=== PATIENT | female | born 1945 | race Caucasian/White ===

== ENCOUNTER 2018-05-24 09:15 | Emergency (ER) | payer MEDICARE, BC ==
[2018-05-24] MEDS ORDERED: Ibuprofen 800 MG Tab PO ONE (10:10)
--- NOTE | 2018-05-24 10:27 | EDM.PDOC ---
<Mireya Dhaliwal M - Last Filed: 05/24/18 10:16> ED HPI GENERAL MEDICAL PROBLEM - General Chief Complaint: Upper Extremity Injury/Pain Stated Complaint: R ARM INJURY Time Seen by Provider: 05/24/18 09:26 Source of Information: Reports: Patient History Limitations: Reports: No Limitations - History of Present Illness INITIAL COMMENTS - FREE TEXT/NARRATIVE: Patient comes in for complaint of right arm pain. She tripped and fell on the pavement on her right side 30 minutes prior to arrival. Most of her pain is over her right elbow, her arm was not outstretched when she fell. Associated symptoms include bruising over her olecranon, swelling, pain, reduced ROM. Skin is intact over the elbow. Patient denies head trauma or LOC. Onset: Today Onset Date: 05/24/18 Onset Time: 08:30 Duration: Constant Location: Reports: Upper Extremity, Right Quality: Reports: Ache Severity: Moderate (7/10) Worsens with: Reports: Movement Context: Reports: Trauma (tripped and fell on pavement) Associated Symptoms: Reports: No Other Symptoms Treatments INTERIOR DESIGN COORDINATOR: Reports: Splint(s) (right forearm splint) Right Arm Pain Score (Numeric/FACES): 7 - Related Data Allergies Allergy/AdvReac Type Severity Reaction Status Date / Time folic acid Allergy Diaphoresis Verified 05/24/18 09:26 Home Meds: Home Meds Aspirin [Halfprin] 81 mg PO DAILY 05/24/18 [History] Citalopram Hydrobromide [Celexa] 1 tab PO DAILY 05/24/18 [History] Furosemide [Lasix] 20 mg PO DAILY 05/24/18 [History] Hydrocodone/Acetaminophen [Hydrocodon-Acetaminophen 5-325] 1 - 2 each PO Q6HR PRN #20 tablet 05/24/18 [Rx] Hydrocortisone [Hydrocortisone 2.5% Crm] 1 applic TOP Q6H PRN 05/24/18 [History] Mesalamine [Apriso] 0.375 gm PO DAILY PRN 05/24/18 [History] Omeprazole 20 mg PO DAILY 05/24/18 [History] Potassium Chloride [Klor-Con 10] 10 meq PO DAILY 05/24/18 [History] Ranitidine HCl [Ranitidine] 150 mg PO BID 05/24/18 [History] Rosuvastatin Calcium 10 mg PO DAILY 05/24/18 [History] Spironolactone [Aldactone] 25 mg PO DAILY 05/24/18 [History] Past Medical History HEENT History: Reports: Impaired Vision Cardiovascular History: Reports: Afib Gastrointestinal History: Reports: Other (See Below) Other Gastrointestinal History: Diverticulitis - Past Surgical History HEENT Surgical History: Reports: Tonsillectomy Cardiovascular Surgical History: Reports: Cardiac Ablation GI Surgical History: Reports: Appendectomy, Cholecystectomy Social & Family History - Family History Family Medical History: Noncontributory - Tobacco Use Smoking Status *Q: Never Smoker - Caffeine Use Caffeine Use: Reports: Coffee Other Caffeine Use: daily - Recreational Drug Use Recreational Drug Use: No Review of Systems - Review of Systems Constitutional: Reports: No Symptoms Respiratory: Reports: No Symptoms. Denies: Shortness of Breath, Wheezing, Cough Cardiovascular: Reports: No Symptoms. Denies: Chest Pain Musculoskeletal: Reports: Arm Pain (right), Joint Pain (right elbow) Skin: Reports: Other (small abrasion on right knee) ED EXAM, GENERAL - Physical Exam Exam Limited By: No Limitations General Appearance: Alert, WD/WN, No Apparent Distress Respiratory/Chest: No Respiratory Distress, Lungs Clear, Normal Breath Sounds Cardiovascular: Regular Rate, Rhythm Peripheral Pulses: 2+: Radial (L), Radial (R) Extremities: Joint Swelling, Limited Range of Motion, Other (ecchymosis over right posterior elbow. Tender over olecranon. Unable to flex/extend/supinate/ pronate.) Skin Exam: Warm, Dry, Intact, Normal Color Course - Vital Signs Last Recorded V/S: Last Vital Signs Temp 98 F 05/24/18 09:23 Pulse 78 05/24/18 09:23 Resp 16 05/24/18 09:23 BP 108/90 05/24/18 09:23 Pulse Ox 97 05/24/18 09:23 - Orders/Labs/Meds Meds: Medications Discontinued Medications Generic Name Dose Route Start Last Admin Trade Name Freq PRN Reason Stop Dose Admin Hydromorphone HCl 1 mg 05/24/18 11:26 05/24/18 11:41 Dilaudid IM 05/24/18 11:27 1 mg ONETIME ONE Administration Ibuprofen 800 mg 05/24/18 10:10 05/24/18 10:19 Motrin PO 05/24/18 10:11 800 mg ONETIME ONE Administration Departure - Departure Disposition: Home, Self-Care 01 Clinical Impression: Fall Qualifiers: Encounter type: initial encounter Qualified Code(s): W19.XXXA - Unspecified fall, initial encounter Abrasion of right knee Qualifiers: Encounter type: initial encounter Qualified Code(s): S80.211A - Abrasion, right knee, initial encounter Closed olecranon process fracture Qualifiers: Encounter type: initial encounter Laterality: right Qualified Code(s): S52.021A - Displaced fracture of olecranon process without intraarticular extension of right ulna, initial encounter for closed fracture - Discharge Information Prescriptions: Hydrocodone/Acetaminophen [Hydrocodon-Acetaminophen 5-325] 1 - 2 each PO Q6HR PRN #20 tablet PRN Reason: Pain Referrals: PCP,Not In Area [Primary Care Provider] - Forms: ED Department Discharge Additional Instructions: Ice your elbow for 15 minutes every other hour while awake for 2 days. Elevate your arm as much as you can for 2 days. Take motrin or aleve for pain and you may take some hydrocodone as needed for pain. Follow up with an orthopedic surgeon when you get home. Please return if you are worse. <Cortes Coello - Last Filed: 05/24/18 12:03> Review of Systems - Review of Systems Review Of Systems: See Below ED EXAM, GENERAL - Physical Exam Exam: See Below ED TRAUMA EXTREMITY PROCEDURES - Splinting Right Upper Extremity Splint Site: Right elbow Pre-Procedure NV Status: Normal Post-Procedure NV Status: Normal Splint Material: Fiberglass Splint Design: Gutter (Long arm) Applied & Form Fitted By: Provider Provider Post-Splint Application NV Check: NV Status Normal, Good Position Complications: No Course - Re-Assessments/Exams Free Text/Narrative Re-Assessment/Exam: 05/24/18 11:53 I examined the patient myself and I agree with Mireya's assessment. The patient has an olecranon process fracture on the right. I ordered some motrin. I then splinted her arm. I called Dr Sifuentes and he said this may need surgery but not today. The patient is from [place]. I will discharge her home. She had more pain so I ordered some dilaudid 1mg IM. Departure - Departure Time of Disposition: 12:00 Condition: Good - Discharge Information *PRESCRIPTION DRUG MONITORING PROGRAM REVIEWED*: No *COPY OF PRESCRIPTION DRUG MONITORING REPORT IN PATIENT RADHA: No
--- NOTE | 2018-05-24 11:10 | CR ---
Right elbow: Four views of the right elbow were obtained. Mildly displaced fracture is seen within the olecranon process. Fracture also noted within the tip of the coronoid process. Joint effusion is seen. Minimal cortical disruption is seen within the lateral aspect of the radial head compatible with minimal chip fracture. No additional abnormality is noted. Impression: 1. Right elbow fracture as noted above. 2. Joint effusion. Diagnostic code #3
[2018-05-24] MEDS ORDERED: HYDROmorphone 0.5 MG/0.5 ML SYRINGE IM ONE (11:26)
== END 2018-05-24 13:07 | disposition home or self-care (01) ==
LOC: JD.ED 09:15
DX: S52.021A Displaced fracture of olecranon process without intraarticular extension of right ulna, initial encounter for closed fracture (principal); S50.01XA Contusion of right elbow, initial encounter; S80.211A Abrasion, right knee, initial encounter; Z88.8 Allergy status to other drugs, medicaments and biological substances; Z79.82 Long term (current) use of aspirin; Z79.899 Other long term (current) drug therapy; W01.0XXA Fall on same level from slipping, tripping and stumbling without subsequent striking against object, initial encounter
CPT/HCPCS: 29105; 73080; 96372; 99284; A9270; J1170